=== PATIENT | female | born 1985 | race Caucasian/White ===

== ENCOUNTER 2020-07-14 15:09 | Emergency (ER) | payer OTHER ==
[~2020-07-14] VITALS: Ht 157.5 cm; Wt 49.9 kg
[~2020-07-14 15:09] MED LIST: CELEXA 20 MG TA20 M1 PO; MOTRIN IB200 MG PO; NORCO 5-325 TA1 EACH PO; PENICILLIN VK250 MG PO; TRAZODONE 150150 MG PO
[2020-07-14] MEDS ORDERED: NAPROSYN500 MG PO (17:26)
[2020-07-14] MEDS ORDERED: AUGMENTIN 875-1 EACH PO (17:26)
[2020-07-14 17:45] VITALS: BP 113/77
== END 2020-07-14 17:45 | disposition home or self-care (01) ==
LOC: ER 15:09
DX: S81.811A Laceration without foreign body, right lower leg, initial encounter (principal); S81.851A Open bite, right lower leg, initial encounter; Z79.1 Long term (current) use of non-steroidal anti-inflammatories (NSAID); Z79.899 Other long term (current) drug therapy; W54.0XXA Bitten by dog, initial encounter; Y93.89 Activity, other specified; Y92.89 Other specified places as the place of occurrence of the external cause; Y99.8 Other external cause status